=== PATIENT | male | born 1965 | race Caucasian/White ===

== ENCOUNTER → 2017-01-04 | Outpatient (CLI) | payer BC ==
[2017-01-04 08:16] LABS: Basophils # (A) 0.1 k/uL (0-0.2); Basophils % (A) 1 %; CHCM 33.7; Eosinophils # (A) 0.2 k/uL (0-0.7); Eosinophils % (A) 3 %; HDW 2.58; HGB 14.2 gm/dL (13.0-17.5); Luc # (Auto) 0.26; Luc % (Auto) 4; Lymphocytes % (A) 34 %; MCH 28.5 pg (25.0-35.0); MCV 86.5 fL (80.0-100.0); Mean Platelet Volume 6.6; Monocytes # (A) 0.4 k/uL (0-1.0); Monocytes % (A) 6 %; Neutrophils # (A) 3.1 k/uL (1.3-7.7); Neutrophils % (A) 52 %; RBC 4.97 m/uL (4.30-5.90); RDW 14.5 % (11.5-15.5); WBC 5.9 k/uL (3.8-10.6)
[2017-01-04 10:14] LABS: ALT 44 U/L (21-72); AST 29 U/L (17-59); Alkaline Phosphatase 78 U/L (38-126); Anion Gap 8 mmol/L; Blood Urea Nitrogen 12 mg/dL (9-20); Calcium 9.2 mg/dL (8.4-10.2); Carbon Dioxide 28 mmol/L (22-30); Chloride 105 mmol/L (98-107); Cholesterol 159 mg/dL (<200); Glucose 105 mg/dL (74-99); HDL Cholesterol 51 mg/dL (40-60); Non-African American GFR(MDRD) >60 (>60 ml/min/1.73 sqM); Potassium 4.2 mmol/L (3.5-5.1); Sodium 141 mmol/L (137-145); Total Bilirubin 0.8 mg/dL (0.2-1.3); Total Protein 6.8 g/dL (6.3-8.2); Triglycerides 70 mg/dL (<150)
[2017-01-04 10:44] LABS: Prostate Specific Antigen 2.22 ng/mL (0.00-4.00)
[2017-01-04 13:36] LABS: Hemoglobin A1C 5.5 % (4.2-6.1)
== END | disposition home or self-care (01) ==
LOC: LABWHC1 06:38
PROVIDERS: ATTEND Family Medicine
DX: Z00.01 Encounter for general adult medical examination with abnormal findings (principal); R73.9 Hyperglycemia, unspecified; Z12.5 Encounter for screening for malignant neoplasm of prostate
CPT/HCPCS: 36415; 80053; 80061; 83036; 84153; 84443; 85025

== ENCOUNTER → 2018-01-03 | Outpatient (CLI) | payer BC ==
[2018-01-03 07:07] LABS: Basophils # (A) 0.1 k/uL (0-0.2); Basophils % (A) 1 %; Eosinophils # (A) 0.3 k/uL (0-0.7); Eosinophils % (A) 4 %; HCT 43.7 % (39.0-53.0); HGB 14.2 gm/dL (13.0-17.5); Lymphocytes # (A) 2.2 k/uL (1.0-4.8); Lymphocytes % (A) 36 %; MCH 27.6 pg (25.0-35.0); MCHC 32.4 g/dL (31.0-37.0); MCV 85.3 fL (80.0-100.0); Monocytes # (A) 0.4 k/uL (0-1.0); Monocytes % (A) 7 %; Neutrophils % (A) 48 %; Platelet Count 326 k/uL (150-450); RBC 5.13 m/uL (4.30-5.90); RDW 12.7 % (11.5-15.5); WBC 6.2 k/uL (3.8-10.6)
[2018-01-03 07:25] LABS: ALT 38 U/L (21-72); AST 32 U/L (17-59); Alkaline Phosphatase 62 U/L (38-126); Anion Gap 7 mmol/L; Blood Urea Nitrogen 14 mg/dL (9-20); Calcium 9.3 mg/dL (8.4-10.2); Carbon Dioxide 31 mmol/L (22-30); Chloride 102 mmol/L (98-107); Cholesterol 172 mg/dL (<200); Glucose 100 mg/dL (74-99); HDL Cholesterol 56 mg/dL (40-60); LDL Cholesterol,Calculated 97 mg/dL (0-99); Potassium 4.3 mmol/L (3.5-5.1); Sodium 140 mmol/L (137-145); Total Bilirubin 0.7 mg/dL (0.2-1.3); Total Protein 6.8 g/dL (6.3-8.2); Triglycerides 94 mg/dL (<150)
[2018-01-03 11:15] LABS: PSA Annual Screen 3.16 ng/mL (0.00-4.00)
== END | disposition home or self-care (01) ==
LOC: LABWHC1 06:35
PROVIDERS: ATTEND Family Medicine
DX: Z00.01 Encounter for general adult medical examination with abnormal findings (principal); Z11.59 Encounter for screening for other viral diseases; Z12.5 Encounter for screening for malignant neoplasm of prostate
CPT/HCPCS: 86803; 80061; 80053; 84443; 85025; 36415; G0103

== ENCOUNTER → 2024-02-03 | Outpatient (CLI) | payer OTHER ==
--- NOTE | 2024-02-03 16:48 | US ---
EXAMINATION TYPE: US mass soft tissue chest/back DATE OF EXAM: 02/03/2024 COMPARISON: NONE CLINICAL INDICATION: Male, 58 years old with history of M25.811 LUMP...RIGHT SHOULDER; Right shoulde r lump posterior x 5 years. TECHNIQUE: Grayscale imaging of the right shoulder. FINDINGS: Ill defined hypoechoic area 4.5 x 3.3 x 3.4 cm. No internal color Doppler flow visualized. IMPRESSION: Right posterior mass which is not typical of a lipoma. Further evaluation with MRI with I V contrast recommended.
== END | disposition home or self-care (01) ==
LOC: RADUSWWP 15:18
PROVIDERS: ATTEND Surgery Plastic and Reconstructive Surgery
DX: M25.811 Other specified joint disorders, right shoulder (principal)

== ENCOUNTER 2024-03-12 23:03 | Emergency (ER) | payer OTHER ==
[2024-03-12 23:11] VITALS: TEMP 97.6
--- NOTE | 2024-03-12 23:58 | ED ---
Recheck HPI - General Source: patient, RN notes reviewed Mode of arrival: ambulatory Limitations: no limitations <Jess Munoz - Last Filed: 03/13/24 03:00> <Gina Wu - Last Filed: 03/19/24 10:59> - General Chief Complaint: Recheck/Abnormal Lab/Rx Stated Complaint: Arm Injury - Post Op Time Seen by Provider: 03/12/24 23:56 - History of Present Illness Initial Comments: 59-year-old male presenting for postop complication. States he had a lipoma on right shoulder earlier today removed by Dr. Wheat. States he bumped his shoulder on something an hour ago and has experienced bleeding through the dressing. Denies pain to the area. Denies blood thinners. (Jess Munoz) - Related Data Home Medications Medication Instructions Recorded Confirmed Losartan/Hydrochlorothiazide 1 each PO DAILY 10/28/15 03/18/24 [Losartan-Hctz 100-25 mg Tab] Latanoprost [Latanoprost 0.005%] 1 drp BOTH EYES DIRECTED 03/06/24 03/18/24 amLODIPine BESYLATE 2.5 mg PO DAILY 03/06/24 03/18/24 Previous Rx's Medication Instructions Recorded Acetaminophen Tab [Tylenol Tab] 1,000 mg PO Q6HR PRN #30 tablet 03/12/24 Ibuprofen [Motrin] 600 mg PO Q8HR PRN #30 tab 03/12/24 Allergies Allergy/AdvReac Type Severity Reaction Status Date / Time diphenhydramine AdvReac Unknown Verified 03/18/24 14:53 [From Benadryl] egg AdvReac Diarrhea Verified 03/18/24 14:54 Latex, Natural Rubber AdvReac spouse Verified 03/18/24 14:53 highly allergic,doesn't want it used rye flour AdvReac Nausea & Uncoded 03/18/24 14:53 Vomiting Review of Systems ROS Other: All systems not noted in ROS Statement are negative. <Jess Munoz - Last Filed: 03/13/24 03:00> ROS Other: All systems not noted in ROS Statement are negative. <Gina Wu - Last Filed: 03/19/24 10:59> ROS Statement: Those systems with pertinent positive or pertinent negative responses have been documented in the HPI. Past Medical History Past Medical History: Hypertension, Prostate Disorder History of Any Multi-Drug Resistant Organisms: None Reported Past Surgical History: No Surgical Hx Reported Past Anesthesia/Blood Transfusion Reactions: No Reported Reaction Additional Past Anesthesia/Blood Transfusion Reaction / Comment(s): never had anesthesia Past Psychological History: No Psychological Hx Reported Smoking Status: Never smoker Past Alcohol Use History: None Reported Past Drug Use History: None Reported - Past Family History Mother Family Medical History: Cancer <Jess Munoz Filed: 03/13/24 03:00> General Exam Limitations: no limitations General appearance: alert, in no apparent distress Head exam: Present: atraumatic, normocephalic, normal inspection Eye exam: Present: normal appearance, PERRL, EOMI. Absent: scleral icterus, conjunctival injection, periorbital swelling Right Shoulder Exam: Present: full ROM, swelling (Mild edema around incision). Absent: normal inspection (10 cm dehiscence of incision with brisk oozing blood present on shoulder. Area surrounding incision is soft, radial pulses are present), tenderness Upper Arm exam: Present: normal inspection, full ROM. Absent: swelling Elbow exam: Present: normal inspection, full ROM. Absent: tenderness, swelling Forearm Wrist exam: Present: normal inspection, full ROM. Absent: tenderness, swelling Vascular: Present: normal capillary refill, radial pulse. Absent: vascular compromise Neurological exam: Present: alert, oriented X3 Psychiatric exam: Present: normal affect, normal mood Skin exam: Present: warm, dry, intact, normal color. Absent: rash <Jess Munoz Filed: 03/13/24 03:00> Course Vital Signs 03/12/24 03/13/24 23:08 02:00 Temperature 97.6 F Pulse Rate 99 88 Respiratory 20 18 Rate Blood Pressure 136/80 125/78 O2 Sat by Pulse 95 99 Oximetry Procedures - Laceration Laceration #1 Consent Obtained: verbal consent Indication: laceration Site: upper extremity Size (cm): 10 Description: linear Depth: simple, single layer Anesthetic Used: lidocaine 1%, with epi Anesthesia Technique: local infiltration Amount (mls): 7 Pre-repair: wound explored, deep structures intact Type of Sutures: nylon Size of Sutures: 3-0 Number of Sutures: 10 Technique: simple, interrupted Complications: bleeding Patient Tolerated Procedure: well, no complications <AlexanderJess - Last Filed: 03/13/24 03:00> - Laceration Laceration #1 Additional Comments: Neurovascularly intact status post procedure (Jess Munoz) Medical Decision Making <Jess Munoz - Last Filed: 03/13/24 03:00> <Gina Wu - Last Filed: 03/19/24 10:59> - Medical Decision Making Was pt. sent in by a medical professional or institution (, PA, SNACK FOODS MIXER OPERATOR, urgent care, hospital, or detention...) When possible be specific @ -No Did you speak to anyone other than the patient for history (EMS, parent, family, police, friend...)? What history was obtained from this source @ - supplemented history Did you review nursing and triage notes (agree or disagree)? Why? @ -I reviewed and agree with nursing and triage notes Were old charts reviewed (outside hosp., previous admission, EMS record, old EKG, old radiological studies, urgent care reports/EKG's, detention records)? Report findings @ -No old charts were reviewed Differential Diagnosis (chest pain, altered mental status, abdominal pain women, abdominal pain men, vaginal bleeding, weakness, fever, dyspnea, syncope, headache, dizziness, GI bleed, back pain, seizure, CVA, palpatations, mental health, musculoskeletal)? @ -Differential Musculoskeletal Incisional dehiscence, muscular strain, contusion, ligament sprain, fracture, arthritis, septic arthritis, bursitis, cellulitis, muscle spasm, nerve compression, DVT, arterial occlusion, herpes zoster, electrolyte abnormality, tumor.... This is not meant to be in all inclusive list EKG interpreted by me (3pts min.). @ -None X-rays interpreted by me (1pt min.). @ -None done CT interpreted by me (1pt min.). @ -None done U/S interpreted by me (1pt. min.). @ -None done What testing was considered but not performed or refused? (CT, X-rays, U/S, labs)? Why? @ -None What meds were considered but not given or refused? Why? @ -None Did you discuss the management of the patient with other professionals (professionals i.e. , PA, SNACK FOODS MIXER OPERATOR, lab, RT, psych nurse, social worker school, logistics specialist, teacher, biological technical officer, cyanide case hardener)? Give summary @ -I spoke with Dr. Gan who approved injecting wound with lidocaine with epi and performing sutures to incision site Was smoking cessation discussed for >3mins.? @ -No Was critical care preformed (if so, how long)? @ -No Were there social determinants of health that impacted care today? How? (Homelessness, low income, unemployed, alcoholism, drug addiction, transportation, low edu. Level, literacy, decrease access to med. care, [facility], rehab)? @ -No Was there de-escalation of care discussed even if they declined (Discuss DNR or withdrawal of care, Hospice)? DNR status @ -No What co-morbidities impacted this encounter? (DM, HTN, Smoking, COPD, CAD, Cancer, CVA, ARF, Chemo, Hep., AIDS, mental health diagnosis, sleep apnea, morbid obesity)? @ -None Was patient admitted / discharged? Hospital course, mention meds given and route, prescriptions, significant lab abnormalities, going to OR and other pertinent info. @ -Discharge. This is a 59-year-old male presenting with postop complication. Patient had lipoma removed by Dr. Munoz earlier today and reports of bleeding from the incision site. Upon examination there is a 10 cm dehiscence of incision with active bleeding. Neurovascularly intact. I spoke with Dr. Gan who approved injecting 1 with lidocaine without being performing sutures to incision site. 10 sutures were performed and wound was dressed to achieve homeostasis. Advised close follow-up with Dr. Wheat tomorrow. Return precautions discussed, patient and are agreeable to plan. Case was discussed with my ED attending Dr. Wu. Patient stable at time of discharge. Undiagnosed new problem with uncertain prognosis? @ -No Drug Therapy requiring intensive monitoring for toxicity (Heparin, Nitro, I nsulin, Cardizem)? @ -No Were any procedures done? @ -No Diagnosis/symptom? @ -Incisional dehiscence Acute, or Chronic, or Acute on Chronic? @ -Acute Uncomplicated (without systemic symptoms) or Complicated (systemic symptoms)? @ -Uncomplicated Side effects of treatment? @ -No Exacerbation, Progression, or Severe Exacerbation? @ -No Poses a threat to life or bodily function? How? (Chest pain, [place], [place], pneumonia, PE, COPD, DKA, ARF, appy, cholecystitis, CVA, Diverticulitis, Homicidal, Suicidal, threat to staff... and all critical care pts) @ -No (Jess Munoz) Case presented to myself by midlevel provider. I did assess the patient personally, 10 cm incision over area of mild swelling in the posterior right shoulder with steady but nonpulsatile blood dripping from site. Radial pulse of RUE 2+. Patient does endorse decrased sensation in the area of the incision site extending down towards his fingers but states that he had a nerve block perfomed earlier today and this is unchanged from when nerve block was performed. Pressure was applied to the area with hemostatic gauze until general surgery could be contacted to confirm no contraindications to lidocaine with epi injection for hemostasis and suturing incision site. Please see above for NETTA conversation with Dr. Carlson. I did reassess patient while NETTA was repairing laceration and ensured close approximation of wound edges. Patient discharged by NETTA after hemostasis was achieved. (Gina Wu) Disposition Is patient prescribed a controlled substance at d/c from ED?: No Time of Disposition: 02:04 <Jess Munoz - Last Filed: 03/13/24 03:00> <Gina Wu - Last Filed: 03/19/24 10:59> Clinical Impression: Dehiscence of incision Disposition: HOME SELF-CARE Condition: Stable Instructions (If sedation given, give patient instructions): Wound Dehiscence (ED) Additional Instructions: Follow-up with Dr. Wheat tomorrow. If dressing falls off, apply lubricated gauze, followed by regular gauze, covered with surgical tape. Please return to the Emergency Department if symptoms worsen or any other concerns. Referrals: Salvador Diehl MD [Primary Care Provider] - 1-2 days Sadia Wheat MD [STAFF PHYSICIAN] - 1-2 days
[2024-03-13] MEDS: LIDOCAINE 0.5%-EPI 1:200,000 50 ML VIAL SQ STA (01:42)
[2024-03-13 02:26] VITALS: BP 125/78; PULSE 88; RESP 18
== END 2024-03-13 02:45 | disposition home or self-care (01) ==
LOC: EC 23:03
CPT/HCPCS: 12004; 99283

== ENCOUNTER → 2024-03-12 | Day surgery (SDC) | payer OTHER ==
[~2024-03-12] MED LIST: DEXAMETHASONE SOD PHOSPHATE 4 MG/ML 1 ML VIAL ONE; HYDROmorphone 0.5 MG/0.5 ML SYRINGE IVP PRN; LIDOCAINE 1% (10MG/ML) FOR IV START INTRADERMA PRN; LIDOCAINE 1% INJ 10MG/ML (20 ML MDV) ONE; ONDANSETRON 4 MG/2 ML VIAL IVP PRN; PROPOFOL 10 MG/ML 20 ML VIAL IV ONE; Pre Op ABX Message 1 EACH MISC MISCELLANE ONE; ROPIVACAINE 5 MG/ML 30 ML VIAL ONE; fentaNYL (PF) 50 MCG/ML 2 ML AMP IVP PRN; fentaNYL (PF) 50 MCG/ML 2 ML AMP ONE
[2024-03-12] MEDS: IV FLUID CONTINUATION 1,000 ML IV ONE ×2 (15:08→17:19)
[2024-03-12] MEDS: ACETAMINOPHEN TAB 500 MG TAB PO PRN (15:44)
[2024-03-12] MEDS: DEXAMETHASONE SOD PHOSPHATE 4 MG/ML 1 ML VIAL IV ONE (15:45)
[2024-03-12] MEDS: HEPARIN SODIUM,PORCINE 5,000 UNIT/ML 1 ML VIAL SQ PRN (15:45)
[2024-03-12] MEDS: ONDANSETRON 4 MG/2 ML VIAL IVP ONE (15:46)
[2024-03-12] MEDS: LACTATED RINGERS 1,000 ML IV SCH (15:46)
--- NOTE | 2024-03-12 15:56 | P.GSHP ---
History of Present Illness H&P Date: 03/12/24 CHIEF COMPLAINT: Right shoulder mass HISTORY OF PRESENT ILLNESS: The patient is a 59-year-old male presents with intramuscular right shoulder mass over 6 cm with increased tenderness fullness. Tenderness and pain present for over 6 months. Patient presents for excision PAST MEDICAL HISTORY: Please see list. PAST SURGICAL HISTORY: Please see list. MEDICATIONS: Please see list. ALLERGIES: Please see list. SOCIAL HISTORY: No illicit drug use FAMILY HISTORY: No reports of Crohn disease or ulcerative colitis. REVIEW OF ORGAN SYSTEMS: CONSTITUTIONAL: No reports of fevers or chills. GI: Denies any blood in stools or constipation. PHYSICAL EXAM: VITAL SIGNS: Stable Musculoskeletal: No clubbing cyanosis GENERAL: Well developed and in no acute distress. Pleasant. HEENT: No sclera icterus. Extraocular movements grossly intact. Moist buccal mucosa. Head is atraumatic, normocephalic. Hears conversational speech. No nasal drainage. NECK: Supple without lymphadenopathy. No JV distention. CHEST: Non-labored respirations and equal bilateral excursions. CARDIOVASCULAR: Regular rate and rhythm. Palpable 2+ radial pulses. ABDOMEN: Soft. Non-tender. Nondistended. NEUROLOGIC: No focal or lateralizing signs. PSYCH: Appropriate affect. Alert and oriented to person, place and time. SKIN: Right shoulder 6 cm mass STUDIES: Ultrasound of the shoulder independent reviewed from January 2024 demonstrates questionable mass of uncertain etiology. ASSESSMENT: 1. Right shoulder 6 cm mass PLAN: 1. Will proceed of right shoulder mass with benefits and risks described. 2. CBC and CMP 3. Preoperative antibiotics Past Medical History Past Medical History: Hypertension, Prostate Disorder History of Any Multi-Drug Resistant Organisms: None Reported Past Surgical History: No Surgical Hx Reported Past Anesthesia/Blood Transfusion Reactions: No Reported Reaction Additional Past Anesthesia/Blood Transfusion Reaction / Comment(s): never had anesthesia Smoking Status: Never smoker - Past Family History Mother Family Medical History: Cancer Medications and Allergies Home Medications Medication Instructions Recorded Confirmed Type Losartan/Hydrochlorothiazide 1 each PO DAILY 10/28/15 03/12/24 History [Losartan-Hctz 100-25 mg Tab] Bimatoprost [Lumigan 0.01% Ophth 1 drop BOTH EYES DIRECTED 03/06/24 03/12/24 History Soln] Latanoprost [Latanoprost 0.005%] 1 drp BOTH EYES DIRECTED 03/06/24 03/12/24 History Solifenacin Succinate 10 mg PO DAILY 03/06/24 03/12/24 History amLODIPine BESYLATE 2.5 mg PO DAILY 03/06/24 03/12/24 History Allergies Allergy/AdvReac Type Severity Reaction Status Date / Time diphenhydramine AdvReac Unknown Verified 03/12/24 15:10 [From Benadryl] Latex, Natural Rubber AdvReac spouse Verified 03/12/24 15:10 highly allergic,doesn't want it used rye flour AdvReac Nausea & Uncoded 03/12/24 15:10 Vomiting Surgical - Exam Vital Signs Temp Resp BP Pulse Ox 97.8 F 16 174/95 99 03/12/24 15:21 03/12/24 15:21 03/12/24 15:21 03/12/24 15:21
[2024-03-12] MEDS: MIDAZOLAM 2 MG/2 ML VIAL IV PRN (17:26)
[2024-03-12] MEDS: SODIUM CHLORIDE 0.9% 50 ML with ceFAZolin 2,000 MG IV ONE (18:01)
[2024-03-12] MEDS: LIDOCAINE 2%-EPI 1:100,000 20 ML VIAL SQ ONE (18:32)
[2024-03-12 19:42] VITALS: TEMP 96.8
--- NOTE | 2024-03-12 19:49 | P.OP ---
Date of Procedure: 03/12/24 Description of Procedure: SURGEON: SADIA WHEAT MD FIREMAN HELPER: NONE. PREOPERATIVE DIAGNOSES: 1. Right shoulder intramuscular lipoma over 5 cm POSTOPERATIVE DIAGNOSES: 1. Posterior right shoulder subfascial lipoma, 15 x 13 cm OPERATION: 1. Excision of complex posterior right shoulder subfascial lipoma, 15 x 13 cm 2. Intermediate closure of posterior right shoulder incision 12 cm ANESTHESIA: LMA with IV sedation ESTIMATED BLOOD LOSS: 25 mL. SPECIMENS REMOVED: 1. Posterior right shoulder subfascial lipoma interdigitating, 15 x 13 cm COMPLICATIONS: None. FINDINGS: 1. Posterior right shoulder subfascial lipoma interdigitating, 15 x 13 cm INDICATIONS: The patient is a 59-year-old male who presents pain and swelling along the right shoulder. MRI obtained demonstrated lipoma. Surgical options, including excision was discussed. Benefits and risks were described. Informed co nsent was obtained. DESCRIPTION OF PROCEDURE: Patient was brought into the operating room, laid in left lateral decubitus position. After adequate IV sedation, the left forearm was prepped and draped in standard sterile fashion using ChloraPrep. A timeout protocol was confirmed with the surgical team regarding patient's name including procedures to be performed. Preoperative medications was administered. Next, a local field block was administered. The left forearm was measured using a ruler with borders marked with indelible marker. A transverse of 6 cm incision was made into the dermis followed by circumferential dissection using electro-Bovie cautery into the subcutaneous tissue of the left lateral forearm. Hemostasis was checked with electrocautery. The wound was closed in multiple layers including 0 Vicryl for the deep subcutaneous tissue. The skin was closed using 3-0 Monocryl. The skin was cleansed. Exofin tape was placed. Optifoam dressing was placed. At the end of the procedure, needle, sponge, and instrument count had been verified correct by the surgical garment assembly supervisor. The patient was taken to the postanesthesia care unit in stable condition. Plan - Discharge Summary Discharge Rx Participant: No New Discharge Prescriptions: New Ibuprofen [Motrin] 600 mg PO Q8HR PRN #30 tab PRN Reason: Pain Acetaminophen Tab [Tylenol Tab] 1,000 mg PO Q6HR PRN #30 tablet PRN Reason: Pain Continue Losartan/Hydrochlorothiazide [Losartan-Hctz 100-25 mg Tab] 1 each PO DAILY Solifenacin Succinate 10 mg PO DAILY Bimatoprost [Lumigan 0.01% Ophth Soln] 1 drop BOTH EYES DIRECTED amLODIPine BESYLATE 2.5 mg PO DAILY Latanoprost [Latanoprost 0.005%] 1 drp BOTH EYES DIRECTED Discharge Medication List Losartan/Hydrochlorothiazide [Losartan-Hctz 100-25 mg Tab] 1 each PO DAILY 10/28/15 [History] Bimatoprost [Lumigan 0.01% Ophth Soln] 1 drop BOTH EYES DIRECTED 03/06/24 [History] Latanoprost [Latanoprost 0.005%] 1 drp BOTH EYES DIRECTED 03/06/24 [History] Solifenacin Succinate 10 mg PO DAILY 03/06/24 [History] amLODIPine BESYLATE 2.5 mg PO DAILY 03/06/24 [History] Acetaminophen Tab [Tylenol Tab] 1,000 mg PO Q6HR PRN #30 tablet 03/12/24 [Rx] Ibuprofen [Motrin] 600 mg PO Q8HR PRN #30 tab 03/12/24 [Rx] Follow up Appointment(s)/Referral(s): Sadia Wheat MD [STAFF PHYSICIAN] - 03/17/24 3:15 pm Patient Instructions/Handouts: Lipoma Removal (DC) Activity/Diet/Wound Care/Special Instructions: DO NOT REMOVE DRESSING. May shower. No lifting over 10 pounds for 2 weeks. No bath tub soaks for two weeks until Mar 26 Diet as tolerated. Use Tylenol and ibuprofen or Aleve scheduled for the next 24-48 hours for best pain relief. Use ice along incisions for today to prevent swelling. Discharge Disposition: HOME SELF-CARE
[2024-03-12 20:40] VITALS: BP 149/82; PULSE 71; RESP 16
--- NOTE | 2024-03-13 06:37 | P.ANPRN ---
Procedure Note - Anesthesia - Nerve Block Performed Right Interscalene Single Time Out Performed: Yes Date of Procedure: 03/12/24 Procedure Start Time: 17: Procedure Stop Time: 17:30 Location of Patient: PreOp Indication: Acute Post-Operative Pain, Requested by Surgeon Sedation Type: Sedate with meaningful contact maintained Preparation: Sterile Prep Position: Supine Needle Types: Pajunk Needle Gauge: 21 Ultrasound used to visualize needle placement: Yes Ultrasound used to observe medication spread: Yes Blood Aspirated: No Pain Paresthesia on Injection Noted: No Resistance on Injection: Normal Image Stored and Saved: Yes Events: Uneventful and Well Tolerated (Ropivacaine 0.5% 20 cc plus dexamethasone 4 mg)
== END | disposition home or self-care (01) ==
LOC: OR 14:46
PROVIDERS: ATTEND Surgery Plastic and Reconstructive Surgery
DX: D17.9 Benign lipomatous neoplasm, unspecified (principal); Z91.012 Allergy to eggs; Z91.040 Latex allergy status; Z88.8 Allergy status to other drugs, medicaments and biological substances
CPT/HCPCS: 23073; 64415; 88304; J2250; J1644; J1100; J2405; J0690; J2003; J3010; J2795; J2704

== ENCOUNTER 2024-03-20 06:11 | Day surgery (SDC) | payer OTHER ==
[~2024-03-20 06:11] MED LIST changes: -DEXAMETHASONE SOD PHOSPHATE 4 MG/ML 1 ML VIAL ONE; -HYDROmorphone 0.5 MG/0.5 ML SYRINGE IVP PRN; -LIDOCAINE 1% (10MG/ML) FOR IV START INTRADERMA PRN; -LIDOCAINE 1% INJ 10MG/ML (20 ML MDV) ONE; -ONDANSETRON 4 MG/2 ML VIAL IVP PRN; -PROPOFOL 10 MG/ML 20 ML VIAL IV ONE; -ROPIVACAINE 5 MG/ML 30 ML VIAL ONE; -fentaNYL (PF) 50 MCG/ML 2 ML AMP IVP PRN; -fentaNYL (PF) 50 MCG/ML 2 ML AMP ONE
--- NOTE | 2024-03-20 06:27 | P.GSHP ---
History of Present Illness H&P Date: 03/20/24 CHIEF COMPLAINT: Hematoma right arm HISTORY OF PRESENT ILLNESS: The patient is a 59 year-old male who 1 week ago had excision of large right posterior shoulder fibrolipoma of 15 cm extending to muscle. Patient had a right arm block at that time. He had done well immediately after surgery and had gone home. Patient reports that he had hit his arm and felt warm along his back. He had immediately started bleeding after traumatic injury to the wound and presented to the emergency room. Patient reports that ER provider attempted to close the wound. Patient returned to the office with new hematoma. He presents today for evacuation of hematoma. PAST MEDICAL HISTORY: Please see list. PAST SURGICAL HISTORY: Please see list. MEDICATIONS: Please see list. ALLERGIES: Please see list. SOCIAL HISTORY: No illicit drug use FAMILY HISTORY: No reports of Crohn disease or ulcerative colitis. REVIEW OF ORGAN SYSTEMS: CONSTITUTIONAL: No reports of fevers or chills. GI: Denies any blood in stools or constipation. PHYSICAL EXAM: VITAL SIGNS: Stable Musculoskeletal: No clubbing cyanosis GENERAL: Well developed and in no acute distress. Pleasant. HEENT: No sclera icterus. Extraocular movements grossly intact. Moist buccal mucosa. Head is atraumatic, normocephalic. Hears conversational speech. No nasal drainage. NECK: Supple without lymphadenopathy. No JV distention. CHEST: Non-labored respirations and equal bilateral excursions. CARDIOVASCULAR: Regular rate and rhythm. Palpable 2+ radial pulses. ABDOMEN: Soft. Non-tender. Nondistended. NEUROLOGIC: No focal or lateralizing signs. PSYCH: Appropriate affect. Alert and oriented to person, place and time. SKIN: Skin lesion right distal lateral forearm, 2 cm PATHOLOGY: Fibrolipoma right posterior shoulder/arm ASSESSMENT: 1. Traumatic hematoma /right upper arm/shoulder PLAN: 1. Will proceed with evacuation of right upper arm/shoulder hematoma. 2. Will avoid shoulder blocks. 3. Will need antibiotic prophylaxis due to traumatic hematoma repaired under prior semisterile environment Past Medical History Past Medical History: Eye Disorder, Hypertension, Prostate Disorder Additional Past Medical History / Comment(s): glaucoma History of Any Multi-Drug Resistant Organisms: None Reported Past Surgical History: No Surgical Hx Reported Additional Past Surgical History / Comment(s): lipoma removal rt shoulder, colonoscopy Past Anesthesia/Blood Transfusion Reactions: No Reported Reaction Additional Past Anesthesia/Blood Transfusion Reaction / Comment(s): never had anesthesia Smoking Status: Never smoker - Past Family History Mother Family Medical History: Cancer Medications and Allergies Home Medications Medication Instructions Recorded Confirmed Type Losartan/Hydrochlorothiazide 1 each PO DAILY 10/28/15 03/18/24 History [Losartan-Hctz 100-25 mg Tab] Latanoprost [Latanoprost 0.005%] 1 drp BOTH EYES DIRECTED 03/06/24 03/18/24 History amLODIPine BESYLATE 2.5 mg PO DAILY 03/06/24 03/18/24 History Acetaminophen Tab [Tylenol Tab] 1,000 mg PO Q6HR PRN #30 tablet 03/12/24 03/18/24 Rx Ibuprofen [Motrin] 600 mg PO Q8HR PRN #30 tab 03/12/24 03/18/24 Rx Allergies Allergy/AdvReac Type Severity Reaction Status Date / Time diphenhydramine AdvReac Unknown Verified 03/18/24 14:53 [From Benadryl] egg AdvReac Diarrhea Verified 03/18/24 14:54 Latex, Natural Rubber AdvReac spouse Verified 03/18/24 14:53 highly allergic,doesn't want it used rye flour AdvReac Nausea & Uncoded 03/18/24 14:53 Vomiting
[2024-03-20] MEDS: IV FLUID CONTINUATION 1,000 ML IV ONE (06:44)
[2024-03-20] MEDS ORDERED: HYDROmorphone 0.5 MG/0.5 ML SYRINGE IVP PRN (07:00)
[2024-03-20] MEDS ORDERED: MIDAZOLAM 2 MG/2 ML VIAL IV PRN (07:00)
[2024-03-20] MEDS: ACETAMINOPHEN TAB 500 MG TAB PO PRN (07:04)
[2024-03-20] MEDS: ONDANSETRON 4 MG/2 ML VIAL IVP PRN (07:06)
[2024-03-20] MEDS: LACTATED RINGERS 1,000 ML IV SCH (07:06)
[2024-03-20] MEDS: DEXAMETHASONE SOD PHOSPHATE 4 MG/ML 1 ML VIAL IVP STA (07:08)
[2024-03-20] MEDS: HEPARIN SODIUM,PORCINE 5,000 UNIT/ML 1 ML VIAL SQ PRN (07:21)
[2024-03-20] MEDS ORDERED: PROPOFOL 10 MG/ML 20 ML VIAL IV ONE (07:32)
[2024-03-20] MEDS ORDERED: ePHEDrine 50 MG/ML 1 ML VIAL ONE (07:32)
[2024-03-20] MEDS ORDERED: SUCCINYLCHOLINE CHLORIDE 200 MG/10 ML VIAL IV ONE (07:32)
[2024-03-20] MEDS ORDERED: MIDAZOLAM 2 MG/2 ML VIAL ONE (07:32)
[2024-03-20] MEDS ORDERED: LIDOCAINE 1% INJ 10MG/ML (20 ML MDV) ONE (07:32)
[2024-03-20] MEDS ORDERED: fentaNYL (PF) 50 MCG/ML 2 ML AMP ONE (07:32)
[2024-03-20] MEDS: SODIUM CHLORIDE 0.9% 50 ML with ceFAZolin 2,000 MG IV ONE (07:37)
[2024-03-20] MEDS: LIDOCAINE 1%-EPI 1:100,000 20 ML VIAL SQ ONE (08:04)
[2024-03-20] MEDS: LACTATED RINGERS 1,000 ML IV ONE (08:38)
[2024-03-20 08:55] VITALS: TEMP 97
--- NOTE | 2024-03-20 09:27 | P.OP ---
Date of Procedure: 03/20/24 Description of Procedure: SURGEON: SADIA WHEAT MD INTERNAL REVENUE AGENT: NONE. PREOPERATIVE DIAGNOSES: 1. Traumatic injury causing hematoma, right upper posterior arm following recent surgery 2. 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 Hypertensive heart disease 4. Glaucoma POSTOPERATIVE DIAGNOSES: 1. Traumatic injury causing hematoma, right upper posterior arm following recent surgery 2. 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 Hypertensive heart disease 4. Glaucoma OPERATION: 1. Drainage of complex right upper posterior arm/shoulder hematoma, 300 cc 2. Excision of benign skin lesion 5 x 12 cm right upper posterior arm/shoulder 3. Complex closure of right upper posterior arm/shoulder incision 12 cm 4. Water jet pulse lavage 1 L for mechanical debridement 8 x 10 cm wound, muscular and subcutaneous layer ANESTHESIA: General With LMA, local ESTIMATED BLOOD LOSS: 5 mL. SPECIMENS REMOVED: 1. Right upper posterior arm benign skin lesion 5 x 12 cm COMPLICATIONS: None. FINDINGS: 1. Multiple clots without active bleeding within right upper posterior arm wound over 300 cc evacuated 2. No active bleeding found within the wound bed. INDICATIONS: The patient is a 59-year-old male who presents 1 week after prior excision of a large fibrolipoma over 15 cm extending to the muscle. At that time, patient had a shoulder block. Patient reports that he had accidentally hit his incision causing shearing and tearing with immediate bleeding less than 12 hours after his initial procedure. He had gone to the emergency room who then closed incision with sutures. Patient was seen in the office with large hematoma over 10 cm with early soft tissue necrosis along the suture site. Surgical options, including evacuation of hematoma with excision early skin necrosis was discussed. Benefits and risks were described. Informed consent was obtained. DESCRIPTION OF PROCEDURE: Patient was brought into the operating room and placed under anesthesia. He was then repositioned and placed in the left lateral decubitus position. The right shoulder and upper arm were prepped and draped in a standard sterile fashion using ChloraPrep. A timeout protocol was confirmed with the surgical team regarding patient's name including procedures to be performed. Preoperative medications were administered including Ancef due to prior semisterile closure from his visit from the ER. Next, a local field block was administered. The swelling of the right posterior upper arm/shoulder was measured using a ruler with borders marked with indelible marker. To excise the epidermal lysis from his prior suture repair in the emergency room, an elliptical incision 5 x 12 cm was made in the subcutaneous tissue. Immediately, gelatinous hematoma without active bleeding was evacuated over 300 cc using suction. The wound bed was explored without any active bleeding identified. Water jet lavage for mechanical debridement using 1 L normal saline solution was performed along the wound bed. The wound bed was expected without any active bleeding identified. Hemostasis was checked with electrocautery. The wound had moderate wide space including superior and inferior flaps which were closed in a 4-layered fashion using 0 Vicryl incorporated the deep followed by superficial subcutaneous tissue. The skin was closed using subcuticular 3-0 Monocryl. The skin was cleansed. Dermabond tape was placed. Optifoam dressing was placed. At the end of the procedure, needle, sponge, and instrument count had been verified correct by the bioinformatics technician. The patient was taken to the postanesthesia care unit in stable condition. Images from the procedure were taken and sent to the patient's family. Plan - Discharge Summary Discharge Rx Participant: No New Discharge Prescriptions: New Cyclobenzaprine [Flexeril] 10 mg PO TID #30 tab Acetaminophen Tab [Tylenol Tab] 1,000 mg PO Q6HR PRN #30 tablet PRN Reason: Pain Continue Losartan/Hydrochlorothiazide [Losartan-Hctz 100-25 mg Tab] 1 each PO DAILY amLODIPine BESYLATE 2.5 mg PO DAILY Latanoprost [Latanoprost 0.005%] 1 drp BOTH EYES DIRECTED Discontinued Ibuprofen [Motrin] 600 mg PO Q8HR PRN #30 tab PRN Reason: Pain Acetaminophen Tab [Tylenol] 1,000 mg PO Q6HR PRN #30 tablet PRN Reason: Pain Discharge Medication List Losartan/Hydrochlorothiazide [Losartan-Hctz 100-25 mg Tab] 1 each PO DAILY 10/28/15 [History] Latanoprost [Latanoprost 0.005%] 1 drp BOTH EYES DIRECTED 03/06/24 [History] amLODIPine BESYLATE 2.5 mg PO DAILY 03/06/24 [History] Acetaminophen Tab [Tylenol Tab] 1,000 mg PO Q6HR PRN #30 tablet 03/20/24 [Rx] Cyclobenzaprine [Flexeril] 10 mg PO TID #30 tab 03/20/24 [Rx] Follow up Appointment(s)/Referral(s): Sadia Wheat MD [STAFF PHYSICIAN] - 03/24/24 1:30 pm Patient Instructions/Handouts: Excision of Skin Lesion (GEN) Activity/Diet/Wound Care/Special Instructions: NO WIDE MOTIONS OF THE SHOULDERS/ARMS FOR 2 weeks, 04/03/24 NO EXTREME STRETCHING OF THE BACK See instructions on dressing. DO NOT REMOVE DRESSING. No lifting over 10 pounds in 2 weeks, 04/03/24 May shower. No bath tub soaks for two weeks along incision, 04/03/24 Diet as tolerated. Discharge Disposition: HOME SELF-CARE
[2024-03-20 09:46] VITALS: RESP 18
[2024-03-20 09:50] VITALS: BP 156/78; PULSE 87
== END 2024-03-20 10:29 | disposition home or self-care (01) ==
LOC: OR 06:11
PROVIDERS: ATTEND Surgery Plastic and Reconstructive Surgery
DX: S40.021A Contusion of right upper arm, initial encounter (principal); Z91.040 Latex allergy status; Z88.8 Allergy status to other drugs, medicaments and biological substances; H40.9 Unspecified glaucoma; I10 Essential (primary) hypertension
CPT/HCPCS: 88304; 11406; 17110; J2250; J0330; J1644; J1100; J2405; J0690; J2003; J3010; J2704